=== PATIENT | male | born 2000 | race Caucasian/White ===

== ENCOUNTER 2018-11-02 10:17 | Emergency (ER) | payer BC ==
[2018-11-02 10:26] VITALS: BP 116/78
--- NOTE | 2018-11-02 11:53 | UC ---
Abdominal Pain Female HPI - History of Current Complaint Chief Complaint: UCGI Stated Complaint: NAUSEOUS Time Seen by Provider: 11/02/18 11:16 Pain Intensity: 0 Allergies/Adverse Reactions: Allergies Allergy/AdvReac Type Severity Reaction Status Date / Time No Known Allergies Allergy Verified 11/02/18 10:26 Home Medications: Home Medications NK [No Home Medications Reported] 11/02/18 [History Confirmed 11/02/18] PMH/Surg Hx/FS Hx/Imm Hx - Surgical History Surgical History: None - Social History Alcohol Use: Rare Substance Use Type: Marijuana Substance Use Comment - Amount & Last Used: 3 times a month Smoking Status (MU): Never Smoked Tobacco Physical Exam Vital Signs: Initial Vital Signs Temp 98.5 F 11/02/18 10:23 Pulse 85 11/02/18 10:23 Resp 18 11/02/18 10:23 BP 116/78 11/02/18 10:23 Pulse Ox 99 11/02/18 10:23 Discharge - Discharge Plan Referrals: No Primary Care Phys,NOPCP [Primary Care Provider] -
--- NOTE | 2018-11-02 12:40 | UC ---
Abdominal Pain Male HPI - HPI Summary HPI Summary: Pt present with sudden onset of nausea that began last week one night without fever, or vomiting, or pain. Pt states that over the last 10 days he has had intermittent episodes of sudden onset of nausea that begins in the evening and resolves in the morning. Pt kenny diarrhea, constipation, vomiting or abdominal pain. P tis sitting comfortably during exam and had mother on speaker phone. Pt kenny habving any iincrease in stress at this time and denies personal and fmh of GI disorder. Denies BRBPR or black tarry stools. - History of Current Complaint Chief Complaint: UCGI Stated Complaint: NAUSEOUS Time Seen by Provider: 11/02/18 11:16 Hx Obtained From: Patient Onset/Duration: Sudden Onset, Lasting Days, Resolved Timing: Intermittent Episodes Lasting: Severity Initially: Moderate Severity Currently: None Pain Intensity: 0 Pain Scale Used: 0-10 Numeric Location: Diffuse Radiates: No Character: Aching, Colicy, Dull Aggravating Factor(s): Nothing Alleviating Factor(s): Spontaneous Resolution Associated Signs And Symptoms: Positive: Decreased Appetite, Nausea - Risk Factors Testicular Torsion: Negative - Allergies/Home Medications Allergies/Adverse Reactions: Allergies Allergy/AdvReac Type Severity Reaction Status Date / Time No Known Allergies Allergy Verified 11/02/18 10:26 PMH/Surg Hx/FS Hx/Imm Hx Previously Healthy: Yes - Surgical History Surgical History: None - Family History Known Family History: Positive: Cardiac Disease - Social History Occupation: Student - [place] Lives: With Family Alcohol Use: Rare Substance Use Type: Marijuana Substance Use Comment - Amount & Last Used: 3 times a month Smoking Status (MU): Never Smoked Tobacco Have You Smoked in the Last Year: No - Immunization History Vaccination Up to Date: Yes Review of Systems All Other Systems Reviewed And Are Negative: Yes Constitutional: Positive: Negative Skin: Positive: Negative Eyes: Positive: Negative ENT: Positive: Negative Respiratory: Positive: Negative Cardiovascular: Positive: Negative Gastrointestinal: Positive: Abdominal Pain - mild and generalized, Nausea Genitourinary: Positive: Negative Motor: Positive: Negative Neurovascular: Positive: Negative Musculoskeletal: Positive: Negative Neurological: Positive: Negative Psychological: Positive: Negative Is Patient Immunocompromised?: No Physical Exam Triage Information Reviewed: Yes Appearance: Well-Appearing Vital Signs: Initial Vital Signs Temp 98.5 F 11/02/18 10:23 Pulse 85 11/02/18 10:23 Resp 18 11/02/18 10:23 BP 116/78 11/02/18 10:23 Pulse Ox 99 11/02/18 10:23 Vital Signs Reviewed: Yes Eye Exam: Normal ENT Exam: Normal Dental Exam: Normal Neck exam: Normal Respiratory Exam: Normal Cardiovascular Exam: Normal Abdomen Description: Positive: Other: - generalized tenderness Bowel Sounds: Positive: Present Musculoskeletal Exam: Normal Neurological Exam: Normal Psychological Exam: Normal Skin Exam: Normal Abd Pain Male Course/Dx - Course Course Of Treatment: Pt reports taking Ibuprofen occasionally prior to onset of nausea but reports that he has been taking it with food or drink. denies black tarry stools - Differential Dx/Clinical Impression Differential Diagnosis/HQI/PQRI: Diverticulitis, Other - gastorenteritis Provider Diagnosis: Nausea alone, Abdominal pain Discharge - Sign-Out/Discharge Documenting (check all that apply): Patient Departure All imaging exams completed and their final reports reviewed: No Studies - Discharge Plan Condition: Stable Disposition: HOME Prescriptions: Ondansetron HCl [Zofran] 8 mg PO Q8H PRN #15 tablet PRN Reason: Nausea Patient Education Materials: Acute Nausea and Vomiting (ED) Referrals: [facility] [Outside] - If Needed No Primary Care Phys,NOPCP [Primary Care Provider] - - Billing Disposition and Condition Condition: STABLE Disposition: Home
== END 2018-11-02 12:13 | disposition home or self-care (01) ==
LOC: UCEAST 10:17
DX: R11.0 Nausea (principal); R10.9 Unspecified abdominal pain
CPT/HCPCS: 99202; G0463

== ENCOUNTER 2018-12-24 18:32 | Emergency (ER) | payer BC ==
[2018-12-24 20:40] LABS: ABS Eosinophils 0.1 10^3/ul (0-0.6); ABS Monocytes 0.7 10^3/ul (0-0.8); Eosinophil % 1.5 %; Hematocrit 46 % (42-52); Mean Corpuscular HGB Conc 35 g/dL (31-36); Mean Corpuscular Hemoglobin 32 pg (27-31); Mean Corpuscular Volume 91 fL (80-94); Nucleated Red Blood Cells % 0.1; Platelet Count 278 10^3/uL (150-450); Red Blood Count 5.05 10^6 /uL (4.18-5.48); Red Cell Distribution Width 13 % (10.5-15); White Blood Count 5.8 10^3/uL (3.5-10.8)
[2018-12-24 21:01] LABS: Albumin 5.1 g/dL (3.2-5.2); Albumin/Globulin Ratio 1.7 (1-3); BUN/Creatinine Ratio 14.1 (8-20); Calcium 10.3 mg/dL (8.6-10.3); EGFR African American 126.9 (>60); EGFR Non-African American 104.9 (>60); Potassium 4.6 mmol/L (3.5-5.0); Total Bilirubin 0.6 mg/dL (0.2-1.0); Total Protein 8.1 g/dL (6.4-8.9)
--- NOTE | 2018-12-24 23:02 | ED ---
HPI Chest Pain - HPI Summary HPI Summary: Complains of intermittent left chest pressure 1 week with 2 episodes of palpitation lasting about an hour. No active CP here in the ED. Patient states pain worse with deep inhalation. Denies trauma, SOB, fever, cough, sore throat, N/V/D, abdominal pain, change in urine, change in BM, history of blood clots, history of recent travel, history of recent immobility, unilateral back pain, recent surgery or trauma, hemoptysis. Medical history is none. Denies cardiac family history. No prior cardiac history. Nonsmoker. Denies EtOH. Admits to recreational marijuana. - History of Current Complaint Chief Complaint: EDChestPainROMI Time Seen by Provider: 12/24/18 21:42 Hx Obtained From: Patient Onset/Duration: Started Days Ago Timing: Intermittent, Lasting Minutes Initial Severity: Mild Current Severity: Mild Pain Intensity: 3 Pain Scale Used: 0-10 Numeric Chest Pain Location: Discrete at:, Left Anterior Chest Pain Radiates: No Character: Tightness Aggravating Factor(s): Deep Breaths Alleviating Factor(s): Nothing Associated Signs and Symptoms: Positive: Chest Pain - Allergy/Home Medications Allergies/Adverse Reactions: Allergies Allergy/AdvReac Type Severity Reaction Status Date / Time No Known Allergies Allergy Verified 11/02/18 10:26 Home Medications: Home Medications NK [No Home Medications Reported] 12/24/18 [History Confirmed 12/24/18] PMH/Surg Hx/FS Hx/Imm Hx Endocrine/Hematology History: Denies: Hx Anticoagulant Therapy Cardiovascular History: Denies: Hx Pacemaker/ICD History: Denies: Hx Dialysis Sensory History: Denies: Hx Eye Prosthesis Opthamlomology History: Denies: Hx Legally Blind EENT History: Denies: Hx Deafness Neurological History: Denies: Hx Dementia Psychiatric History: Denies: Hx Autism Infectious Disease History: No Infectious Disease History: Denies: Traveled Outside the [place] in Last 30 Days - Family History Known Family History: Positive: Cardiac Disease - Social History Alcohol Use: Rare Substance Use Type: Reports: Marijuana Substance Use Comment - Amount & Last Used: 3 times a month Smoking Status (MU): Never Smoked Tobacco Have You Smoked in the Last Year: No Review of Systems Constitutional: Negative Eyes: Negative ENT: Negative Cardiovascular: Negative Positive: Chest Pain Respiratory: Negative Gastrointestinal: Negative Genitourinary: Negative Musculoskeletal: Negative Skin: Negative Neurological: Negative Psychological: Normal All Other Systems Reviewed And Are Negative: Yes Physical Exam - Summary Physical Exam Summary: Chest pain not reproducible. Lung sounds clear to auscultation bilaterally. RRR. Abdomen soft nontender. No peripheral edema. No signs of trauma to the chest or abdomen. Triage Information Reviewed: Yes Vital Signs On Initial Exam: Initial Vitals Temp Pulse Resp BP Pulse Ox 97.8 F 90 18 138/83 99 12/24/18 18:44 12/24/18 18:44 12/24/18 18:44 12/24/18 18:44 12/24/18 18:44 Vital Signs Reviewed: Yes Appearance: Positive: Well-Appearing Skin: Positive: Warm Head/Face: Positive: Normal Head/Face Inspection Eyes: Positive: Normal ENT: Positive: Normal ENT inspection Neck: Positive: Supple Respiratory/Lung Sounds: Positive: Clear to Auscultation Cardiovascular: Positive: Normal Abdomen Description: Positive: Nontender Musculoskeletal: Positive: Normal Neurological: Positive: Normal Psychiatric: Positive: Normal AVPU Assessment: Alert - [place] Coma Scale Best Eye Response: 4 - Spontaneous Best Motor Response: 6 - Obeys Commands Best Verbal Response: 5 - Oriented Coma Scale Total: 15 Diagnostics - Vital Signs Vital Signs Temp Pulse Resp BP Pulse Ox 12/24/18 22:00 67 19 100 12/24/18 21:49 67 9 100 12/24/18 20:47 99.1 F 59 16 137/79 98 12/24/18 18:44 97.8 F 90 18 138/83 99 - Laboratory Lab Results: Lab Results 12/24/18 12/24/18 12/24/18 Range/Units 19:34 19:34 19:34 WBC 5.8 (3.5-10.8) 10^3/uL RBC 5.05 (4.18-5.48) 10^6 /uL Hgb 16.0 (14.0-18.0) g/dL Hct 46 (42-52) % MCV 91 (80-94) fL MCH 32 H (27-31) pg MCHC 35 (31-36) g/dL RDW 13 (10.5-15) % Plt Count 278 (150-450) 10^3/uL MPV 8.0 (7.4-10.4) fL Neut % (Auto) 51.7 % Lymph % (Auto) 35.0 % [place] % (Auto) 11.4 % Eos % (Auto) 1.5 % Baso % (Auto) 0.4 % Absolute Neuts (auto) 3.0 (1.5-7.7) 10^3/ul Absolute Lymphs (auto) 2.0 (1.0-4.8) 10^3/ul Absolute Monos (auto) 0.7 (0-0.8) 10^3/ul Absolute Eos (auto) 0.1 (0-0.6) 10^3/ul Absolute Basos (auto) 0.0 (0-0.2) 10^3/ul Absolute Nucleated RBC 0.0 10^3/ul Nucleated RBC % 0.1 Sodium 140 (135-145) mmol/L Potassium 4.6 (3.5-5.0) mmol/L Chloride 105 (101-111) mmol/L Carbon Dioxide 29 (22-32) mmol/L Anion Gap 6 (2-11) mmol/L BUN 13 (6-24) mg/dL Creatinine 0.92 (0.67-1.17) mg/dL Est GFR ( Amer) 126.9 (>60) Est GFR (Non-Af Amer) 104.9 (>60) BUN/Creatinine Ratio 14.1 (8-20) Glucose 94 (70-100) mg/dL Lactic Acid 1.3 (0.5-2.0) mmol/L Calcium 10.3 (8.6-10.3) mg/dL Total Bilirubin 0.60 (0.2-1.0) mg/dL AST 17 (13-39) U/L ALT 21 (7-52) U/L Alkaline Phosphatase 103 (34-104) U/L Troponin I 0.00 (<0.04) ng/mL Total Protein 8.1 (6.4-8.9) g/dL Albumin 5.1 (3.2-5.2) g/dL Globulin 3.0 (2-4) g/dL Albumin/Globulin Ratio 1.7 (1-3) Result Diagrams: 12/24/18 19:34 12/24/18 19:34 Lab Statement: Any lab studies that have been ordered have been reviewed, and results considered in the medical decision making process. Chest Pain Course/Dx - Course Course Of Treatment: Complains of intermittent left chest pressure 1 week with 2 episodes of palpitation lasting about an hour. No active CP here in the ED. Patient states pain worse with deep inhalation. Denies trauma, SOB, fever, cough, sore throat, N/V/D, abdominal pain, change in urine, change in BM, history of blood clots, history of recent travel, history of recent immobility, unilateral back pain, recent surgery or trauma, hemoptysis. Medical history is none. Denies cardiac family history. No prior cardiac history. Nonsmoker. Denies EtOH. Admits to recreational marijuana. Physical exam:Chest pain not reproducible. Lung sounds clear to auscultation bilaterally. RRR. Abdomen soft nontender. No peripheral edema. No signs of trauma to the chest or abdomen. Vital signs within normal limits. Labs unremarkable. EKG sinus rhythm. Chest x-ray negative for acute process. Advised patient follow up with primary care and cardiology for possible Holter monitor evaluation. Patient understands and approves of plan. - Diagnoses Provider Diagnoses: Atypical chest pain Discharge - Sign-Out/Discharge Documenting (check all that apply): Patient Departure Patient Received Moderate/Deep Sedation with Procedure: No - Discharge Plan Condition: Stable Disposition: HOME Patient Education Materials: Chest Pain (ED) Referrals: No Primary Care Phys,NOPCP [Primary Care Provider] - Additional Instructions: Follow-up with primary care and cardiology Dr Castro for possible evaluation of palpitations with Holter monitor. Return to the ED for any new or worsening symptoms. - Billing Disposition and Condition Condition: STABLE Disposition: Home
[2018-12-24 23:39] VITALS: BP 130/87
== END 2018-12-24 23:38 | disposition home or self-care (01) ==
LOC: ED 18:32
DX: R07.89 Other chest pain (principal)
CPT/HCPCS: 36415; 71046; 80053; 83605; 84484; 85025; 93005; 99282

== ENCOUNTER 2019-04-29 16:36 | Emergency (ER) | payer BC ==
--- NOTE | 2019-04-29 16:53 | ED ---
GI/ HPI - HPI Summary HPI Summary: Patient complains of pain to upper left testicle 3 days. Patient states he noticed a lump there 1 week ago which was not penis at that time. Denies trauma , penile discharge, testicular swelling or redness, urine symptoms, new sexual partners, fever, N/V abdominal pain, change in BM. Medical history is none. - History of Current Complaint Chief Complaint: EDUrogenitalProblems Time Seen by Provider: 04/29/19 16:46 Stated Complaint: TESTICLE PAIN PER PT Hx Obtained From: Patient Onset/Duration: Started Days Ago Timing: Constant Severity: Mild Current Severity: Mild Pain Intensity: 3 Location of Pain: Groin Additional Locations for Males: Testicles Pain Characteristics: Dull Associated Signs and Symptoms: Positive: Negative Additional Signs & Symptoms: Negative: Penile Swelling, Penile Discharge, Lesions Aggravating Factor(s): Palpation Alleviating Factor(s): Nothing - Allergy/Home Medications Allergies/Adverse Reactions: Allergies Allergy/AdvReac Type Severity Reaction Status Date / Time No Known Allergies Allergy Verified 11/02/18 10:26 PMH/Surg Hx/FS Hx/Imm Hx Endocrine/Hematology History: Denies: Hx Anticoagulant Therapy Cardiovascular History: Denies: Hx Pacemaker/ICD History: Denies: Hx Dialysis Sensory History: Denies: Hx Eye Prosthesis, Hx Legally Blind, Hx Deafness Opthamlomology History: Denies: Hx Eye Prosthesis, Hx Legally Blind EENT History: Denies: Hx Deafness Neurological History: Denies: Hx Dementia Psychiatric History: Denies: Hx Autism Infectious Disease History: No Infectious Disease History: Denies: Traveled Outside the [place] in Last 30 Days - Family History Known Family History: Positive: Cardiac Disease - Social History Alcohol Use: Rare Substance Use Type: Reports: Marijuana Substance Use Comment - Amount & Last Used: 3 times a month Smoking Status (MU): Never Smoked Tobacco Have You Smoked in the Last Year: No Review of Systems Constitutional: Negative Eyes: Negative ENT: Negative Cardiovascular: Negative Respiratory: Negative Gastrointestinal: Negative Positive: other Musculoskeletal: Negative Skin: Negative Neurological: Negative Psychological: Normal All Other Systems Reviewed And Are Negative: Yes Physical Exam - Summary Physical Exam Summary: 1 cm x 1 cm mass at top of left testicle. Mildly tender to palpation. Exam of genitals otherwise unremarkable. Triage Information Reviewed: Yes Vital Signs On Initial Exam: Initial Vitals Temp Pulse Resp BP Pulse Ox 97.2 F 69 18 119/80 99 04/29/19 16:38 04/29/19 16:38 04/29/19 16:38 04/29/19 16:38 04/29/19 16:38 Vital Signs Reviewed: Yes Appearance: Positive: Well-Appearing Skin: Positive: Warm Head/Face: Positive: Normal Head/Face Inspection Eyes: Positive: Normal Neck: Positive: Supple Respiratory/Lung Sounds: Positive: Clear to Auscultation Cardiovascular: Positive: Normal Abdomen Description: Positive: Nontender Male Genital Exam: Positive: Epididymal Tenderness, Testicular Tenderness (L). Negative: No Hernia, Erythema, Hernia Mass, Inguinal Tenderness, Lesions, Scrotum Tenderness (R), Scrotum Tenderness (L), Testicular Tenderness (R), Urethral Discharge Musculoskeletal: Positive: Normal Neurological: Positive: Normal Psychiatric: Positive: Normal AVPU Assessment: Alert - [place] Coma Scale Best Eye Response: 4 - Spontaneous Best Motor Response: 6 - Obeys Commands Best Verbal Response: 5 - Oriented Coma Scale Total: 15 Diagnostics - Vital Signs Vital Signs Temp Pulse Resp BP Pulse Ox 04/29/19 16:38 97.2 F 69 18 119/80 99 - Laboratory Lab Statement: Any lab studies that have been ordered have been reviewed, and results considered in the medical decision making process. GIGU Course/Dx - Course Course Of Treatment: Patient complains of pain to upper left testicle 3 days. Patient states he noticed a lump there 1 week ago which was not penis at that time. Denies trauma, penile discharge, testicular swelling or redness, urine symptoms, new sexual partners, fever, N/V abdominal pain, change in BM. Medical history is none. Vital signs within normal limits. Ultrasound of testicles positive for epididymitis cyst. Trial of ibuprofen. Follow up with urology symptoms persist more than 1 week. - Diagnoses Provider Diagnoses: Epididymal cyst Discharge ED - Sign-Out/Discharge Documenting (check all that apply): Patient Departure Patient Received Moderate/Deep Sedation with Procedure: No - Discharge Plan Condition: Stable Disposition: HOME Patient Education Materials: Scrotal Pain (ED) Referrals: No Primary Care Phys,NOPCP [Primary Care Provider] - William Landis MD [Medical Doctor] - Additional Instructions: Take ibuprofen 600 mg for pain. If pain persists more than one-week follow-up with Urology Dr. Landis for further evaluation. - Billing Disposition and Condition Condition: STABLE Disposition: Home
[2019-04-29 18:04] VITALS: BP 125/79
== END 2019-04-29 18:00 | disposition home or self-care (01) ==
LOC: ED 16:36
DX: N50.3 Cyst of epididymis (principal)
CPT/HCPCS: 76870; 99281